=== PATIENT | female | born 1945 | race Caucasian/White ===

== ENCOUNTER → 2025-02-16 13:03 | Outpatient (BNVA) | payer MEDICARE, BC, SELFPAY | PROVIDERS: PCP Family Medicine; Referring Provider Family Medicine; Visit Provider Physician Assistant Surgical | DX: R05.3 Chronic cough (principal); J44.9 Chronic obstructive pulmonary disease, unspecified | CPT/HCPCS: 94640; 99205; J7620 ==

== ENCOUNTER 2025-02-16 17:09 | Outpatient (REF) | payer MEDICARE, BC, SELFPAY | END 2025-02-16 17:10 | disposition home or self-care (01) | LOC: LBN 17:09 | PROVIDERS: PCP Family Medicine; Visit Provider Physician Assistant Surgical | DX: J44.9 Chronic obstructive pulmonary disease, unspecified (principal); R05.3 Chronic cough | CPT/HCPCS: 87070; 87205 ==

== ENCOUNTER → 2025-03-17 07:59 | Outpatient (BNVA) | payer MEDICARE, BC, SELFPAY | PROVIDERS: PCP Family Medicine; Referring Provider Family Medicine; Visit Provider Physician Assistant Surgical | DX: J44.9 Chronic obstructive pulmonary disease, unspecified (principal); J47.9 Bronchiectasis, uncomplicated | CPT/HCPCS: 99214 ==

== ENCOUNTER → 2025-09-13 09:08 | Outpatient (BNVA) | payer MEDICARE, BC, SELFPAY | PROVIDERS: PCP Family Medicine; Referring Provider Family Medicine; Visit Provider Physician Assistant Surgical | DX: J47.9 Bronchiectasis, uncomplicated (principal); J44.9 Chronic obstructive pulmonary disease, unspecified; Z87.891 Personal history of nicotine dependence | CPT/HCPCS: 99214 ==